=== PATIENT | male | born 1945 | race Caucasian/White ===

== ENCOUNTER → 2016-04-02 | Day surgery (SDC) | payer MEDICARE ==
[~2016-04-02] MED LIST: B-COTAB41 PO; BIOTCAP PO; COQ150CA PO; CRANCAP11 PO; FISH120014 PO; GINK60TA3 PO; GLUCTAB PO; HYDR-3580 PO; IOHEXOL 180 MG/ML 20 ML VIAL (for RAD DIAG) ONE; LACTATED RINGER'S 1000 ML INJ 1,000 ML ONE; LIDOCAINE HCL 1% 50 ML VIAL ONE; MAGN30TA2 PO; MELO15 PO; MIDAZOLAM HCL 2 MG/2 ML VIAL ONE; PROPOFOL 200 MG/20 ML AMP IV ONE; PROT40TA PO; RIVA10 PO; TRIAMCINOLONE ACETONIDE 40 MG/ML VIAL ONE; VITA400C58 PO; VITACAP PO; Z.0.COMMODE-3:1; Z.0.WALKERFRONT; [UNRECOGNIZED DRUG - CODE] PO
--- NOTE | 2016-04-02 16:39 | TN ---
cc: LASHONDA LOONEY DATE OF SURGERY: 04/02/2016 PREOPERATIVE DIAGNOSES 1. Osteoarthritis, left hip. 2. Arthrofibrosis, left hip. POSTOPERATIVE DIAGNOSES 1. Osteoarthritis, left hip. 2. Arthrofibrosis, left hip. PROCEDURES 1. Manipulation of left hip under anesthesia. 2. Arthrogram left hip. 3. Injection of left hip with Kenalog, 40 mg. 4. Use of fluoroscopy for percutaneous guidance. 5. Intraoperative x-ray left hip, two views, post manipulation. SURGEON Lashonda Looney MD ANESTHESIA TIVA. BLOOD LOSS None. INDICATION This is a 70-year-old male status post previous right hip replacement arthroplasty doing well. The patient is having restricted range of motion of the left hip and significant pain. Despite conservative care, he continued painful. He presents for surgical treatment. PROCEDURE The patient was brought to the operating room and anesthetized with limited sedation. The left hip was evaluated under anesthesia. The range of motion was flexion 80, extension 0, internal rotation 20, external rotation 30. The left hip was manipulated under anesthesia. Post manipulation flexion 100, extension 0, internal rotation 30, external rotation 45. The left hip was scrubbed with alcohol followed by Hibiclens followed by Chloraprep and draped sterilely. Under fluoroscopy a 22-gauge spinal needle was advanced across the anterior aspect of the hip joint after a proper timeout had been done. We placed into an intra-articular position. This was injected with contrast. This contrast showed evidence of significant loss of articular cartilage. Pitting and erosive change in the femoral head was seen. There was no leakage of contrast. No cystic changes were noted. We then injected with 3 cc of 1% lidocaine plain. The needle was withdrawn. A second range of motion was done. Intraoperative x-rays were done and confirmed the arthrogram findings and no evidence of a fracture was noted. The patient was awaken and taken to the Recovery Room in satisfactory condition. MD CHRISTINA Hughes/BJF /1:53 PM /4:17 PM
== END | disposition home or self-care (01) ==
LOC: ESDC 12:12
PROVIDERS: ATTEND Orthopaedic Surgery Orthopaedic Surgery of the Spine
DX: M16.12 Unilateral primary osteoarthritis, left hip (principal); M24.652 Ankylosis, left hip
CPT/HCPCS: 01200; 27275; 73502; 76000; J2250; J3010; J3301; J7120; Q9965

== ENCOUNTER → 2016-11-01 | Outpatient (CLI) | payer MEDICARE ==
[~2016-11-01] MED LIST changes: +ASPI81TA5 PO; +BIOT10TA PO; +COMMODE 3-IN-11 MIS; +COQ-50CA2 PO; +CRAN250C3 PO; +ENOX40IN SQ; +ESCI5TAB PO; +GINK60TA10 PO; +GLUC100017 PO; -IOHEXOL 180 MG/ML 20 ML VIAL (for RAD DIAG) ONE; -LACTATED RINGER'S 1000 ML INJ 1,000 ML ONE; -LIDOCAINE HCL 1% 50 ML VIAL ONE; +LYRI50CA PO; +MAGN30TA PO; -MIDAZOLAM HCL 2 MG/2 ML VIAL ONE; +OMEGCAP PO; -PROPOFOL 200 MG/20 ML AMP IV ONE; -TRIAMCINOLONE ACETONIDE 40 MG/ML VIAL ONE; +VITA1CAP17 PO; +VITA200C3 PO; +VITATAB11 PO; +VITD400 PO; +WALKER WHEELS/F1 MIS; +XARE10TA PO
[2016-11-01 09:00] LABS: AUTOMATED NEUTROPHIL # 3.8 TH/MM3 (1.8-7.7); BASOPHIL % 0.3 % (0.0-2.0); EOSINOPHIL # 0.1 TH/MM3 (0-0.4); EOSINOPHIL % 2.2 % (0.0-4.0); HEMATOCRIT 40.2 % (39.0-51.0); HEMO FLAGS DIFF FINAL; LYMPH % 22.9 % (9.0-44.0); LYMPHOCYTE # 1.3 TH/MM3 (1.0-4.8); MEAN CELL VOLUME 90.2 FL (80.0-100.0); MEAN CORPUSCULAR HEMOGLOBIN 30.5 PG (27.0-34.0); MEAN CORPUSCULAR HGB CONC 33.8 % (32.0-36.0); MONO % 10.2 % (0.0-8.0); NEUT % 64.4 % (16.0-70.0); PLATELET COUNT 249 TH/MM3 (150-450); RED BLOOD COUNT 4.46 MIL/MM3 (4.50-5.90); RED CELL DISTRIBUTION WIDTH 14.4 % (11.6-17.2); WHITE BLOOD COUNT 5.8 TH/MM3 (4.0-11.0)
[2016-11-01 09:07] LABS: APTT (PATIENT) 27.1 SEC (24.3-30.1); PROTHROMBIN TIME - PATIENT 10.7 SEC (9.8-11.6)
[2016-11-01 09:35] LABS: BICARBONATE 28.7 MEQ/L (21.0-32.0); POTASSIUM 3.9 MEQ/L (3.5-5.1)
[2016-11-01 10:06] LABS: BLOOD, URINE NEG (NEG); COMMENT (UR) CULT NOT INDICATED; CULTURE IF INDICATED CULT NOT INDICATED; GLUCOSE,URINE NEG (NEG); KETONE, URINE NEG (NEG); MUCUS URINE FEW /lpf (OCC); NITRITE,URINE NEG (NEG); URINE COLOR YELLOW (YELLW/STRAW)
== END ==
LOC: CPRE 08:01
PROVIDERS: ATTEND Orthopaedic Surgery Orthopaedic Surgery of the Spine
DX: Z01.810 Encounter for preprocedural cardiovascular examination (principal); Z01.812 Encounter for preprocedural laboratory examination; Z79.01 Long term (current) use of anticoagulants; M16.12 Unilateral primary osteoarthritis, left hip
CPT/HCPCS: 36415; 80048; 81001; 85025; 85610; 85730

== ENCOUNTER 2016-11-16 06:53 | Inpatient (IN) | payer MEDICARE ==
[~2016-11-16] VITALS: Ht 188 cm; Wt 95.6 kg
[~2016-11-16 06:53] MED LIST changes: -B-COTAB41 PO; -BIOTCAP PO; -COMMODE 3-IN-11 MIS; -COQ150CA PO; -CRANCAP11 PO; -ENOX40IN SQ; -FISH120014 PO; -GINK60TA3 PO; -GLUCTAB PO; -HYDR-3580 PO; -MAGN30TA2 PO; -MELO15 PO; -RIVA10 PO; -VITA400C58 PO; -VITACAP PO; -WALKER WHEELS/F1 MIS; -XARE10TA PO; -Z.0.COMMODE-3:1; -Z.0.WALKERFRONT; -[UNRECOGNIZED DRUG - CODE] PO
[2016-11-16] MEDS ORDERED: GENTAMICIN SULFATE 80 MG/2 ML VIAL ONE (07:08)
[2016-11-16] MEDS ORDERED: CHLORHEXIDINE GLUCONATE 2 % 1 PACK (2 CLOTHS) TOPICAL PRN (07:30)
[2016-11-16] MEDS ORDERED: POVIDONE IODINE 7.5% SCRUB 118 ML BOTTLE TOPICAL SCH (07:30)
[2016-11-16] MEDS ORDERED: LACTATED RINGER'S 1000 ML IV PRN (07:30)
[2016-11-16] MEDS ORDERED: METOPROLOL TARTRATE 25 MG TAB PO PRN (07:30)
[2016-11-16] MEDS ORDERED: POVIDONE IODINE 5% (ANTISEPSIS KIT) 4 APPLICATIONS EACH NARE PRN (07:30)
[2016-11-16] MEDS ORDERED: SODIUM CHLORID 0.9% 500 ML IV PRN (07:30)
[2016-11-16] MEDS ORDERED: INSULIN HUMAN REGULAR 1,000 UNITS/10 ML VIAL SQ PRN (07:30)
[2016-11-16] MEDS ORDERED: VANCOMYCIN 1000 MG/NS 250 ML (for <70 kg) IV SCH ×2 (07:30)
[2016-11-16] MEDS ORDERED: ENOX40IN SQ (07:38)
[2016-11-16] MEDS ORDERED: ACETAMINOPHEN 1000 MG/100 ML 100 ML IV ONE (08:15)
[2016-11-16] MEDS ORDERED: APREPITANT 40 MG CAP ONE (08:15)
[2016-11-16] MEDS ORDERED: DEXAMETHASONE SOD PHOS 4 MG/ML VIAL ONE (08:15)
[2016-11-16] MEDS ORDERED: MIDAZOLAM HCL 2 MG/2 ML VIAL ONE (08:15)
[2016-11-16] MEDS: SODIUM CHLORIDE 0.9% IV SCH ×2 (09:25→11:09)
[2016-11-16] MEDS: TRANEXAMIC ACID IV SCH ×2 (09:25→11:09)
[2016-11-16] MEDS: ceFAZolin 2 GM PREMIX 50 ML IV SCH ×3 (10:00→11:00)
[2016-11-16] MEDS: EXPAREL PERI-ARTICULAR INJECTION (TOTAL VOL. 60 ML) P-ARTICULR SCH ×4 (10:30→11:09)
[2016-11-16] MEDS ORDERED: NEOSTIGMINE 3 MG/3 ML SYR IV ONE (10:38)
[2016-11-16] MEDS ORDERED: ePHEDrine/NS 25 MG/5 ML SYR IV ONE (10:38)
[2016-11-16] MEDS ORDERED: PROPOFOL 200 MG/20 ML AMP IV ONE (10:38)
[2016-11-16] MEDS ORDERED: ONDANSETRON HCL 4 MG/2 ML VIAL IV PUSH ONE (10:38)
[2016-11-16] MEDS ORDERED: LACTATED RINGER'S 1000 ML INJ 1,000 ML IV ONE (10:40)
[2016-11-16] MEDS ORDERED: NALOXONE HCL 0.4 MG/ML AMP IV PRN (11:45)
[2016-11-16] MEDS ORDERED: MORPHINE SULFATE 8 MG/ML INJ IM PRN (11:45)
[2016-11-16] MEDS ORDERED: MISCELLANEOUS NURSING INFORMATION XX PRN (11:45)
[2016-11-16] MEDS ORDERED: SODIUM CHLORIDE 0.9% FLUSH 5 ML FLUSH IVF PRN (11:45)
[2016-11-16] MEDS ORDERED: ACETAMINOPHEN/HYDROcodone 325 MG/7.5 MG TAB PO PRN (11:45)
[2016-11-16] MEDS ORDERED: Post-op Orders (for Pharmacy) MISC XX ONE (11:45)
--- NOTE | 2016-11-16 11:56 | PD.OP ---
cc: Torsten Miles MD Operative Report Date of Surgery: Nov 16, 2016 Preoperative Diagnosis: Osteoarthritis left hip, severe Postoperative Diagnosis: Same Procedure: Left total hip replacement arthroplasty, direct anterior exposure Anesthesia: Gen. Surgeon: Torsten Miles Resident Buyer(s): DAVID Minor Operation and Findings: EBL: 500 cc INDICATION: This patient presents with significant hip pain related to severe arthritis of the left hip. He has had a previous right total hip replacement and is doing quite well. Despite extensive conservative care this patient continues to be painful and now presents for surgical treatment. NOTE: Olamide Minor PA-C was present for the entire surgical procedure as my first line production supervisor. In my medical opinion her skill and care was necessary for the proper management of this patient. COMPONENTS: COMPANY: [employer] CUP: [place], 58 mm, 100 series, gription surface LINER: Altrx 36 mm, neutral STEM: [place], size 14, high offset, hydroxyapatite-coated HEAD: 36, +5, metal, 12/14 taper PROCEDURE: This patient was brought to the operating room and anesthetized in the supine position and positioned on the fracture table with both legs held extended. The left hip and leg was scrubbed with alcohol followed by Hibiclens followed by ChloraPrep and draped sterilely. Antibiotics were given within routine time window and a timeout was done. A 4 inch incision was made starting 2 cm distal and 2 cm lateral to the anterior superior iliac spine. The fascia yifan was opened longitudinally. The interval between the fascia yifan and the rectus was opened down to the capsule of the hip joint. Retractors were positioned allowing good visualization of the capsule. This was opened longitudinally and flaps were created. Stay sutures were utilized. Exposure was excellent. The neck was cut at the proper location using fluoroscopy as a guide. The head was removed. Deep retractors were positioned allowing good visualization of the acetabulum. Acetabulum was deepened down to the floor starting with a proper size reamer and reaming up to 57 mm. A trial was utilized. Fluoroscopy was used to check position and confirmed satisfactory alignment. The rim was reamed with a 58 mm reamer and the final cup was positioned in approximately 20 of anteversion and 40-45 of abduction. Position was satisfactory. A single hole eliminator was positioned followed by the final liner. The lifting hook was utilized. The leg was dropped to the floor, maximally externally rotated and brought across the midline. Retractors were positioned. A box osteotome was utilized followed by progressive broaching to the proper stem size. Trial reduction showed excellent alignment and fit. With 60 of external rotation the leg was dropped to the floor without evidence of anterior subluxation. The wound was irrigated. The final stem was inserted and was found to be very stable. The final reduction using the final head. Stability was as previously noted. Intraoperative x-rays were taken. The wound was irrigated copiously. Hemostasis was controlled. Local anesthesia was utilized. The capsule was repaired with #2 Tycron sutures. The fascia yifan was repaired with running 0 PDS on a loop. Subcutaneous tissue was approximated with 2-0 Vicryl and skin with running intradermal 3-0 Vicryl followed by Steri-Strips. A sterile dressing was applied. The patient was awakened and taken to the recovery room in satisfactory condition. FINDINGS: There was severe osteoarthritis of the left hip. The final solution was excellent. Alignment and comparison to the contralateral right leg appeared nearly identical. Leg length was equalized. Torsten Miles MD Nov 16, 2016 11:56
[2016-11-16] MEDS ORDERED: HYDR-3580 PO (12:00)
[2016-11-16] MEDS ORDERED: XARE10TA PO (12:00)
[2016-11-16] MEDS ORDERED: MISCELLANEOUS PHARMACY INFORMATION XX ONE (12:00)
[2016-11-16] MEDS ORDERED: MORPHINE SULFATE 30 MG/30 ML PCA IV SCH (12:00)
[2016-11-16] MEDS ORDERED: DO NOT ADM ANY ANTICOAGULANT DRUGS PRN (12:05)
[2016-11-16] MEDS: LACTATED RINGER'S 1000 ML INJ 1,000 ML IV SCH ×2 (12:30→22:45)
--- NOTE | 2016-11-16 13:47 | RADRPT ---
EXAM DATE/TIME: 11/16/2016 10:33 [facility] COMPARISON: HIP LEFT (AP&LAT 2/3VWS) WO AP PELVIS, April 02, 2016, 13:43. INDICATIONS : Left total hip replacement in OR. MEDICAL HISTORY : None. SURGICAL HISTORY : None. ENCOUNTER: Initial ACUITY: 1 day PAIN SCORE: Non-responsive. LOCATION: Left hip FINDINGS: Two intraprocedural fluoroscopic hole images. There has been interval left hip arthroplasty. The arth roplasty components appear in anatomic alignment. Visualized osseous structures appear grossly intact without significant acute fracture. Soft tissues are grossly unremarkable. CONCLUSION: 1. Status post left hip arthroplasty in near-anatomic alignment. Diaz Payne MD on November 16, 2016 at 13:24 Board Certified Radiologist. This report was verified electronically.
[2016-11-16] MEDS: PCA - TOTAL MG MORPHINE DELIVERED PER SHIFT SCH ×2 (14:00→22:00)
[2016-11-16 19:00] VITALS: BP 101/53; PULSE 93; RESP 16; TEMP 97.5; O2SAT 95
[2016-11-16] MEDS: PREGABALIN 25 MG CAP PO SCH (21:00)
[2016-11-16] MEDS: SODIUM CHLORIDE 0.9% FLUSH 5 ML FLUSH IVF SCH (21:00)
[2016-11-16] MEDS ORDERED: WALKER WHEELS/F1 MIS (21:16)
[2016-11-16] MEDS ORDERED: COMMODE 3-IN-11 MIS (21:17)
[2016-11-16] MEDS: MAGNESIUM HYDROXIDE SUSP 30 ML CUP PO SCH (21:31)
[2016-11-16] MEDS: SENNOSIDES 8.6 MG TAB PO SCH (21:32)
[2016-11-16 21:59] VITALS: O2SAT 95
[2016-11-16 23:58] VITALS: BP 109/59; PULSE 82; RESP 16; TEMP 97.8; O2SAT 97
[2016-11-17] MEDS: LACTATED RINGER'S 1000 ML INJ 1,000 ML IV SCH ×2 (00:16→23:43)
[2016-11-17] MEDS: RIVAROXABAN 10 MG TAB PO SCH ×2 (00:16→23:43)
[2016-11-17 04:00] VITALS: BP 123/56; PULSE 72; RESP 16; TEMP 97.2; O2SAT 98
[2016-11-17] MEDS: PCA - TOTAL MG MORPHINE DELIVERED PER SHIFT SCH (06:00)
[2016-11-17 08:00] VITALS: BP 120/58; PULSE 77; RESP 18; TEMP 97.8; O2SAT 92
[2016-11-17] MEDS: PREGABALIN 25 MG CAP PO SCH ×2 (08:18→20:20)
[2016-11-17] MEDS: ESCITALOPRAM OXALATE 10 MG TAB PO SCH (08:18)
[2016-11-17] MEDS: PANTOPRAZOLE SOD 40 MG DELAYED RELEASE TAB PO SCH (08:18)
[2016-11-17] MEDS: MAGNESIUM HYDROXIDE SUSP 30 ML CUP PO SCH ×2 (08:19→20:20)
[2016-11-17] MEDS: ACETAMINOPHEN/HYDROcodone 325 MG/7.5 MG TAB PO PRN ×3 (08:19→20:20)
[2016-11-17 08:30] VITALS: O2SAT 97
[2016-11-17] MEDS: SODIUM CHLORIDE 0.9% FLUSH 5 ML FLUSH IVF SCH ×2 (09:00→20:20)
--- NOTE | 2016-11-17 09:58 | HHI.FF ---
Face to Face Verification Diagnosis: (1) Osteoarthritis of left hip Physical Therapy Gait training, Safety evaluation, Transfer training, bed to chair Hip: Total hip, Protocol: Left, Progress to weight bearing Left LE Weight Bearing: WB as tolerated Additional Instructions PT 4x/week for 2 weeks. WBAT LLE. Anterior left MARICEL precautions. Walker as needed. Gait training, LE strengthening. Nursing RN Days per Week: 2 x Week(s): 1 Dressing Changes: Do not change dressing Additional Instructions Vitals assessment, dressing assessment - do not change unless saturated or erythema. I have seen patient Carlito Baker on 11/17/16. My clinical findings support the need for the requested home health care services because: Limited ability to care for self High risk of falls I certify that my clinical findings support that this patient is homebound because: Post-op weakness Unsteady gait/balance Anjana Arthur Nov 17, 2016 09:58
--- NOTE | 2016-11-17 10:12 | HHI.DCPOC ---
Discharge Care Plan Diagnosis: (1) Osteoarthritis of left hip Your Health Problems Are: Incision/Drains Swelling Goals to Promote Your Health * To prevent worsening of your condition and complications * To maintain your health at the optimal level Directions to Meet Your Goals Take your medications as prescribed Follow your dietary instruction Follow activity as directed Keep your appointments as scheduled Take your immunizations and boosters as scheduled If your symptoms worsen call your PCP, if no PCP go to Urgent Care Center or Emergency Room Smoking is Dangerous to Your Health. Avoid second hand smoke Call the 24-hour hour crisis hotline for domestic abuse at Anjana Arthur Nov 17, 2016 10:12
--- NOTE | 2016-11-17 10:18 | HHI.DS ---
Discharge Summary Admission Date Nov 16, 2016 at 06:53 Discharge Date: Nov 18, 2016 Admitting Diagnosis see below Diagnosis: (1) Osteoarthritis of left hip Diagnosis: Principal ICD Codes: M16.12 - Unilateral primary osteoarthritis, left hip Procedures Left total hip arthroplasty, Direct anterior approach Brief History This is a 71 year old male patient with a multi-year history of bilateral hip pain. He underwent right total hip arthroplasty in 2016 and did very well. His left hip continued to be painful. He was placed on meloxicam and did well for several months but had to discontinue this medication for other medical reasons. He had an intra-articular joint injection on the left March 2016 but this only provided 2-3 months relief. It was recommended he undergo left total hip arthroplasty, direct anterior approach. He agreed and now presents for surgical treatment. Hospital Course Surgical treatment was performed on the day of admission without complication. He recovered well in PACU and was transferred to the orthopaedic floor. Pain was controlled with IV and oral medications. DVT prophylaxis was initiated with xarelto 12 hours after surgery. He was compliant with physical therapy and all total hip precautions. After ..2... days he was found to be stable and discharged home with home health care. He was instructed to continue physical therapy, continue his xarelto for 25 days, and to pursue a high fiber diet for 3 -5 days postop. Pt Condition on Discharge: Stable Discharge Disposition: Disch w/ Home Health Serv Discharge Instructions Diet Instructions: As Tolerated, No Restrictions, High Fiber Diet Activities You Can Perform: Weight Bearing as [place] Activities to Avoid: Strenuous Activity Additional Activity Instruc.: Left anterior MARICEL precautions New Medications: Commode 3-in-1 (Commode 3-in-1) 1 Mis Mis EA .ROUTE DIRECTED, #1 0 Refills Walker with Front Wheels (Walker with Front Wheels) 1 Mis Mis EA .ROUTE DIRECTED, #1 0 Refills Hydrocodone-Acetaminophen (Hydrocodone-Acetaminophen) 7.5-325 mg Tab 1 TAB PO Q4H PRN for Pain, #50 TAB Rivaroxaban (Xarelto) 10 Mg Tab 10 MG PO Q24H for Prevent Blood Clot, #25 TAB Continued Medications: Aspirin DR (Aspirin DR) 81 Mg Tabdr 81 MG PO DAILY, TAB 0 Refills B-Complex Vitamins (Vitamin B Complex) 1 Tab 1 TAB PO DAILY Biotin (Biotin) 10 Mg Tab 10 MG PO DAILY for Nutritional Supplement, #1 BOTTLE 0 Refills Cholecalciferol (Vitamin D3) 400 Unit Tab 400 UNITS PO DAILY for Nutritional Supplement, #1 TAB 0 Refills Cranberry Fruit Extract (Cranberry) 250 Mg Capsule Unknown Dose PO DAILY Enoxaparin Inj (Enoxaparin Inj) 40 Mg/0.4 Ml Syr Unknown Dose SQ DAILY for Blood Clot Prevention, SYRINGE 0 Refills Escitalopram (Escitalopram) 5 Mg Tab 5 MG PO DAILY, #30 TAB 0 Refills Fish Oil-Cholecalciferol ([place]-3 Fish Oil/Vitamin) 1,000-1,000 Mg Cap 1 CAP PO DAILY for Nutritional Supplement, CAP 0 Refills Ginkgo Biloba [place] Extract (Ginkgo Biloba) 60 Mg Tablet 1 TAB PO DAILY Glucosamine (Glucosamine) 1,000 Mg Cap 1000 MG PO BID for Herbal Supplements, CAP 0 Refills Magnesium Elemental (Magnesium Elemental) 30 Mg Tab 30 MG PO DAILY for Nutritional Supplement, TAB 0 Refills Pantoprazole (Protonix) 40 Mg Tab 40 MG PO DAILY for Reflux, #30 TAB 0 Refills Pregabalin (Lyrica) 50 Mg Cap 50 MG PO BID, #60 CAP 0 Refills Vitamin E (Vitamin E) 200 Unit Cap 200 UNITS PO DAILY for Nutritional Supplement, CAP 0 Refills Vitamins A and D (Vitamin A and D) 1 Each Capsule 1 CAP PO DAILY Anjana Arthur Nov 17, 2016 10:18
[2016-11-17 10:41] LABS: HEMATOCRIT 33.7 % (39.0-51.0); REVIEW FLAG FINAL
[2016-11-17 12:00] VITALS: BP 108/51; PULSE 71; RESP 18; TEMP 98.1; O2SAT 93
--- NOTE | 2016-11-17 13:14 | PD.ORT.PN ---
Subjective Subjective Remarks Doing well. He states he has 'normal hip pain after surgery'. He notes moderate cramping and throbbing left hip and groin. He denies any radiating leg pain. Denies CP, SOB or abd pain. He has questions about discharge. He has several steps in his house to get to a bedroom. Objective Vitals Vital Signs Date Time Temp Pulse Resp B/P (MAP) Pulse Ox O2 Delivery O2 Flow Rate FiO2 11/17/16 08:30 97 21 11/17/16 08:00 97.8 77 18 120/58 (78) 92 11/17/16 06:00 18 11/17/16 04:00 97.2 72 16 123/56 (78) 98 11/16/16 23:58 97.8 82 16 109/59 (76) 97 11/16/16 22:00 18 11/16/16 21:59 95 Nasal Cannula 2.00 11/16/16 21:30 97 Nasal Cannula 2.00 11/16/16 19:00 97.5 93 16 101/53 (69) 95 11/16/16 17:45 87 16 136/74 (94) 96 Nasal Cannula 2 11/16/16 17:15 80 16 124/60 (81) 95 Nasal Cannula 2 11/16/16 16:15 75 16 114/57 (76) 94 Nasal Cannula 2 11/16/16 15:15 92 16 117/63 (81) 96 Nasal Cannula 2 11/16/16 14:15 81 16 121/63 (82) 96 Nasal Cannula 2 11/16/16 13:15 79 16 135/65 (88) 95 Nasal Cannula 2 I/O 11/16/16 11/16/16 11/16/16 11/17/16 11/17/16 11/17/16 06:59 14:59 22:59 06:59 14:59 22:59 Intake Total 2050 ml 480 ml 2280 ml Output Total 1200 ml 1300 ml 540 ml Balance 850 ml -820 ml 1740 ml Intake Oral 480 ml 480 ml IV Total 250 ml 1800 ml Other 1800 ml Output Urine Total 700 ml 1300 ml 540 ml Estimated Blood Loss 500 ml # Bowel Movements 0 0 Result Diagram: 11/17/16 0939 Procedures Left total hip arthroplasty, Direct anterior approach Objective Remarks Sitting up in a chair, NAD VSS LLE Dressing c/d/i, no drainage, minimal swelling, no erythema thigh and calf both supple, neg homans +motor at, +sens, +nvi Assessment & Plan Ortho Post Op Day #: 1 Problem List: (1) Osteoarthritis of left hip ICD Codes: M16.12 - Unilateral primary osteoarthritis, left hip Qualifiers: Qualified Codes: M16.12 - Unilateral primary osteoarthritis, left hip Assessment and Plan pod#1 s/p L MARICEL, anterior D/C SENIOR GRANT WRITER - change to po pain meds. PT - WBAT LLE. Anterior maricel protocol. Consider attempting 1-2 steps as patient has steps at home. Xarelto 10mg qd for 25 days. Hold dressing changes unless saturated. D/C planning, likely home w c tomorrow if stable. F2F written. DME written. Anjana Arthur Nov 17, 2016 13:14
[2016-11-17 16:00] VITALS: BP 115/63; PULSE 82; RESP 18; TEMP 97.6; O2SAT 94
[2016-11-17 20:10] VITALS: BP 122/81; PULSE 79; RESP 17; TEMP 100.3; O2SAT 92
[2016-11-17] MEDS: SENNOSIDES 8.6 MG TAB PO SCH (20:20)
[2016-11-18 00:05] VITALS: BP 130/60; PULSE 77; RESP 18; TEMP 98.6; O2SAT 92
[2016-11-18 08:00] VITALS: BP 112/52; PULSE 76; RESP 17; TEMP 98.7; O2SAT 93
--- NOTE | 2016-11-18 08:07 | PD.ORT.PN ---
Subjective Subjective Remarks He continues to do well. No new complaints. No interval changes. He still has moderate hip pain but the oral medications are very helpful. He denies any new radiating leg pain, new chest pain, SOB or abd pain. Objective Vitals Vital Signs Date Time Temp Pulse Resp B/P (MAP) Pulse Ox O2 Delivery O2 Flow Rate FiO2 11/18/16 00:05 98.6 77 18 130/60 (83) 92 11/17/16 20:10 100.3 79 17 122/81 (95) 92 11/17/16 16:00 97.6 82 18 115/63 (80) 94 11/17/16 12:00 98.1 71 18 108/51 (70) 93 11/17/16 09:20 18 11/17/16 09:20 18 11/17/16 08:30 97 21 I/O 11/17/16 11/17/16 11/17/16 11/18/16 11/18/16 11/18/16 07:00 15:00 23:00 07:00 15:00 23:00 Intake Total 2280 ml 600 ml 240 ml 240 ml Output Total 540 ml 500 ml Balance 1740 ml 600 ml 240 ml -260 ml Intake Oral 480 ml 600 ml 240 ml 240 ml IV Total 1800 ml Output Urine Total 540 ml 500 ml # Voids 2 2 # Bowel Movements 0 0 0 0 Result Diagram: 11/17/16 0939 Procedures Left total hip arthroplasty, Direct anterior approach Objective Remarks Sitting up in bed, NAD VSS LLE Dressing c/d/i, no new drainage, minimal swelling, no erythema thigh and calf both supple, neg homans +motor at, +sens, +nvi Assessment & Plan Ortho Post Op Day #: 2 Problem List: (1) Osteoarthritis of left hip ICD Codes: M16.12 - Unilateral primary osteoarthritis, left hip Qualifiers: Qualified Codes: M16.12 - Unilateral primary osteoarthritis, left hip Assessment and Plan pod#2 s/p L MARICEL, anterior He continues to do well. No new complaints. Ok to d/c home w [facility] after PT today. PO pain meds. PT - WBAT LLE. Anterior maricel protocol. Will order 'step instruction' before discharge today. Xarelto 10mg qd for 25 days. Hold dressing changes unless saturated. F/U in 2 weeks as scheduled. F2F written. DME written. Anjana Arthur Nov 18, 2016 08:07
[2016-11-18] MEDS: PREGABALIN 25 MG CAP PO SCH (08:22)
[2016-11-18] MEDS: ESCITALOPRAM OXALATE 10 MG TAB PO SCH (08:22)
[2016-11-18] MEDS: PANTOPRAZOLE SOD 40 MG DELAYED RELEASE TAB PO SCH (08:22)
[2016-11-18] MEDS: ACETAMINOPHEN/HYDROcodone 325 MG/7.5 MG TAB PO PRN ×2 (08:27→13:22)
[2016-11-18] MEDS: MAGNESIUM HYDROXIDE SUSP 30 ML CUP PO SCH (09:00)
[2016-11-18] MEDS: SODIUM CHLORIDE 0.9% FLUSH 5 ML FLUSH IVF SCH (09:00)
[2016-11-18 12:00] VITALS: BP 115/72; PULSE 75; RESP 17; TEMP 98.4; O2SAT 94
== END 2016-11-18 15:37 | disposition home health service (06) | DRG 470 ==
LOC: HSDI 06:53 → N06B 17:59
PROVIDERS: ADMIT Orthopaedic Surgery Orthopaedic Surgery of the Spine; ATTEND Orthopaedic Surgery Orthopaedic Surgery of the Spine
PROC: 0SRB01A Replacement of Left Hip Joint with Metal Synthetic Substitute, Uncemented, Open Approach (ICD-10-PCS; principal; 2016-11-16 09:33)
DX: M16.12 Unilateral primary osteoarthritis, left hip (principal); E78.5 Hyperlipidemia, unspecified; K21.9 Gastro-esophageal reflux disease without esophagitis; Z96.641 Presence of right artificial hip joint; Z87.891 Personal history of nicotine dependence
CPT/HCPCS: 73502; 76000; 85014; 85018; 86850; 86900; 86901; 86920; 94150; C1776; C9290; J0131; J0690; J1100; J1580; J2250; J2270; J2405; J2710; J3010; J3370; J7050; J7120; J8501